=== PATIENT | female | born 1990 | race Caucasian/White ===

== ENCOUNTER 2020-11-09 07:03 | Outpatient (CLI) | payer OTHER ==
[~2020-11-09 07:03] MED LIST: DOCU-131 PO; FERR325T23 PO; IBUP-1222 PO; OXYC1TAB12 PO; PREN1TAB60 PO
[2020-11-09] MEDS ORDERED: NONE PER PT (07:35)
[2020-11-09 08:08] LABS: BASOPHILS % (AUTO) 1 % (0-1); EOSINOPHILS % (AUTO) 2 % (1-7); LYMPHOCYTES % (AUTO) 31 % (22-44); MEAN CORPUSCULAR HEMOGLOBIN 30.2 pg (27.0-34.8); MEAN CORPUSCULAR HGB CONC 33.6 g/dL (32.4-35.8); MONOCYTES % (AUTO) 6 % (2-9); NEUTROPHILS % (AUTO) 60 % (42-75); PLATELET COUNT 312 x10^3/uL (130-400); RED BLOOD COUNT 4.79 x10^6/uL (3.82-5.3); RED CELL DISTRIBUTION WIDTH 13.2 % (9.6-15.2)
[2020-11-09 08:09] LABS: MICROSCOPIC NOT IND
[2020-11-09 08:15] LABS: ALANINE AMINOTRANSFERASE 29 U/L (12-78); ANION GAP 4 mmol/L (5-15); CALCIUM 9.1 mg/dL (8.5-10.1); CHLORIDE 107 mmol/L (98-107); CREATININE 0.84 mg/dL (0.55-1.02)
[2020-11-09 08:19] LABS: ALKALINE PHOSPHATASE 53 U/L (45-117); BILIRUBIN,TOTAL 0.3 mg/dL (0.2-1.0)
== END 2020-11-09 23:59 | disposition home or self-care (01) ==
LOC: STAR 07:03
PROVIDERS: ATTEND Obstetrics & Gynecology Gynecology
DX: Z01.812 Encounter for preprocedural laboratory examination (principal); Z20.822 Contact with and (suspected) exposure to COVID-19; N93.9 Abnormal uterine and vaginal bleeding, unspecified; R10.2 Pelvic and perineal pain; N80.0 Endometriosis of uterus; N94.6 Dysmenorrhea, unspecified
CPT/HCPCS: 36415; 80053; 81003; 84702; 85025; U0003

== ENCOUNTER 2020-11-15 05:36 | Day surgery (SDC) | payer OTHER ==
[~2020-11-15] VITALS: Ht 160 cm; Wt 95.4 kg
[~2020-11-15 05:36] MED LIST changes: +NONE PER PT; -OXYC1TAB12 PO; +OXYC1TAB14 PO
[2020-11-15 06:08] VITALS: BP 116/74
[2020-11-15 06:23] LABS: HCG UR SG 1.009 (1.003-1.030)
[2020-11-15] MEDS ORDERED: no home meds per pt (06:29)
[2020-11-15] MEDS ORDERED: CHLORHEXIDINE 15 ML UDC PO ONE (06:30)
[2020-11-15] MEDS ORDERED: LACTATED RINGERS 1,000 ML IV SCH (06:30)
[2020-11-15] MEDS ORDERED: BUPIVACAINE/PF 0.25% ONE (07:14)
[2020-11-15] MEDS ORDERED: EPINEPHRINE 1 MG/ML, 1ML ONE (07:15)
[2020-11-15] MEDS ORDERED: MANNITOL PMX 20% 500 ML ONE (07:15)
[2020-11-15] MEDS ORDERED: ROCURONIUM 10MG/ML,5ML ONE (07:24)
[2020-11-15] MEDS ORDERED: FENTANYL PF 250 MCG/5ML ONE (07:24)
[2020-11-15] MEDS ORDERED: MIDAZOLAM 1 MG/ML, 2ML ONE (07:24)
[2020-11-15] MEDS ORDERED: LIDOCAINE-MPF 2% ,5ML ONE (07:27)
[2020-11-15] MEDS ORDERED: PROPOFOL 10 MG/ML, 20ML ONE (07:27)
[2020-11-15] MEDS ORDERED: DEXAMETHASONE 4 MG/ML, 1ML ONE ×2 (07:29→07:32)
[2020-11-15] MEDS ORDERED: CEFAZOLIN 1,000 MG ONE ×2 (07:32)
[2020-11-15] MEDS ORDERED: BUPIVACAINE/PF-EPI 0.25% 1:200K INFIL ONE (07:49)
[2020-11-15] MEDS ORDERED: GLYCOPYRROLATE 0.2MG/1ML, 5ML ONE (09:08)
[2020-11-15] MEDS ORDERED: NEOSTIGMINE 1 MG/ML, 10ML ONE (09:08)
[2020-11-15] MEDS ORDERED: FENTANYL PF 100 MCG/2ML ONE ×2 (09:10→09:54)
[2020-11-15] MEDS ORDERED: KETOROLAC 30 MG/1 ML ONE (09:10)
[2020-11-15] MEDS ORDERED: ONDANSETRON 2MG/ML, 2ML IVPush PRN (09:30)
[2020-11-15] MEDS ORDERED: MEPERIDINE/PF 25MG/0.5ML IVPush PRN (09:30)
[2020-11-15] MEDS ORDERED: hydrALAzine 20 MG/ML, 1ML IV PRN (09:30)
[2020-11-15] MEDS ORDERED: LABETALOL 5MG/ML, 20ML IV PRN (09:30)
[2020-11-15] MEDS ORDERED: HYDROmorphone 1 MG/ML, 1ML INJ IVPush PRN (09:30)
[2020-11-15] MEDS ORDERED: ALBUTEROL SULFATE 2.5 MG/3 ML NPPB PRN (09:30)
[2020-11-15] MEDS ORDERED: DIPHENHYDRAMINE 50 MG/ML, 1ML IVPush PRN ×2 (09:30)
[2020-11-15] MEDS ORDERED: PROMETHAZINE 12.5 MG SUPP PR PRN (09:30)
[2020-11-15] MEDS ORDERED: ACETAMINOPHEN 325 MG TABLET PO PRN (09:30)
[2020-11-15] MEDS ORDERED: EPHEDRINE 50 MG/ML, 1ML IVPush PRN (09:30)
[2020-11-15] MEDS ORDERED: PROMETHAZINE 25 MG/ML, 1ML IVPush PRN (09:30)
[2020-11-15] MEDS ORDERED: OXYcodone 5 MG/5 ML ORAL.SOL UDC PO PRN (09:30)
[2020-11-15] MEDS ORDERED: MIDAZOLAM 1 MG/ML, 2ML IV PRN (09:30)
[2020-11-15] MEDS ORDERED: DIAZEPAM 5 MG/ML, 2ML IVPush PRN (09:30)
[2020-11-15] MEDS ORDERED: OXYcodone 5 MG/5 ML ORAL.SOL UDC ONE (09:54)
[2020-11-15] MEDS: FENTANYL PF 100 MCG/2ML IV PRN ×2 (09:56→10:01)
[2020-11-15] MEDS ORDERED: ACETAMINOPHEN 650 MG/20.3 ML UDC ONE (10:08)
== END 2020-11-15 14:03 | disposition home or self-care (01) ==
LOC: OUT 05:36
PROVIDERS: ATTEND Obstetrics & Gynecology Gynecology
DX: N93.9 Abnormal uterine and vaginal bleeding, unspecified (principal); N80.0 Endometriosis of uterus; N94.6 Dysmenorrhea, unspecified; N94.10 Unspecified dyspareunia; N73.6 Female pelvic peritoneal adhesions (postinfective); J45.909 Unspecified asthma, uncomplicated; G43.909 Migraine, unspecified, not intractable, without status migrainosus; E66.9 Obesity, unspecified; Z79.899 Other long term (current) drug therapy
CPT/HCPCS: 36415; 58571; 81025; 86850; 86900; 88307; J0171; J0690; J1100; J1885; J2250; J2405; J2704; J2710; J3010; J7120